=== PATIENT | female | born 1960 | race Caucasian/White ===

== ENCOUNTER 2022-12-31 07:42 | Emergency (ER) | payer BC ==
[~2022-12-31] VITALS: Ht 152.4 cm; Wt 46.0 kg
[2022-12-31 16:29] LABS: BASOPHILS % 0.5 % (0.0-2.0); EOSINOPHILS % 1.4 % (0.0-5.0); HEMATOCRIT. 32.3 % (36.0-48.0); HEMOGLOBIN. 10.6 g/dL (12.0-16.0); LYMPHOCYTES % 23.8 % (20.0-50.0); MEAN CORPUSCULAR HEMOGLOBIN 22.4 pg (28.0-32.0); MEAN CORPUSCULAR VOLUME 67.9 fL (81.0-99.0); MEAN PLATELET VOLUME 8.7 fl (7.4-10.4); NEUTROPHILS % 68.3 % (40.0-76.0); PLATELET 334 x1000/uL (130-400); RED BLOOD CELL COUNT 4.75 mill/uL (4.2-5.4); RED CELL DISTRIBUTION WIDTH 16.4 % (11.6-14.6)
[2022-12-31 16:38] LABS: CHLORIDE 111 mEq/L (98-107)
[2022-12-31 18:10] LABS: PLATELET ESTIMATE NORMAL
[2023-01-01] MEDS ORDERED: ACETAMINOPHEN 325MG TABLET PO ONE (22:30)
[2023-01-02 18:14] VITALS: BP 123/75
== END 2023-01-02 18:16 | disposition home or self-care (01) ==
LOC: ER 07:56
DX: R41.82 Altered mental status, unspecified (principal); R62.50 Unspecified lack of expected normal physiological development in childhood
CPT/HCPCS: 36415; 80048; 82962; 85025; 99285